=== PATIENT | male | born 1960 | race Caucasian/White ===

== ENCOUNTER 2017-06-27 17:39 | Emergency (ER) | payer OTHER ==
[~2017-06-27] VITALS: Ht 182.9 cm; Wt 82.2 kg
[~2017-06-27 17:39] MED LIST: AMLO5TAB4 PO; LISI10TA2 PO
[2017-06-27] MEDS ORDERED: b/p med (19:05)
[2017-06-27] MEDS ORDERED: LORazepam 1MG TABLET ONE (19:22)
[2017-06-27] MEDS ORDERED: LORazepam 1MG TABLET PO ONE (19:30)
[2017-06-27 19:32] LABS: HEMATOCRIT 44.2 % (39.2-51.8); HEMOGLOBIN 14.8 g/dL (13.7-18.0); WHITE BLOOD COUNT 6.6 x10^3/uL (3.4-10)
[2017-06-27 19:44] LABS: ASPARTATE AMINO TRANSFERASE 15 U/L (15-37); BLOOD UREA NITROGEN 16 mg/dL (7-18)
[2017-06-27 19:46] LABS: ACETAMINOPHEN < 2 mcg/mL (10-30)
[2017-06-27 19:50] LABS: DAU SCREEN DISCLAIMER
[2017-06-27 20:15] VITALS: BP 115/76
== END 2017-06-27 20:35 | disposition left against medical advice (07) ==
LOC: ED 20:29
DX: F41.1 Generalized anxiety disorder (principal); I10 Essential (primary) hypertension; F17.200 Nicotine dependence, unspecified, uncomplicated
CPT/HCPCS: 36415; 80053; 80307; 80329; 84443; 85025; 99284; G0480

== ENCOUNTER 2017-08-28 12:26 | Emergency (ER) | payer OTHER ==
[~2017-08-28] VITALS: Ht 182.9 cm; Wt 82.0 kg
[~2017-08-28 12:26] MED LIST changes: +b/p med
[2017-08-28] MEDS ORDERED: VALS80TA3 PO (13:08)
[2017-08-28] MEDS ORDERED: ASPI-650 PO (13:10)
[2017-08-28] MEDS ORDERED: SODIUM CHLORIDE FLUSH 10ML SYR IVF ONE (13:30)
[2017-08-28 13:31] LABS: WHITE BLOOD COUNT 6.8 x10^3/uL (3.4-10)
[2017-08-28 13:42] LABS: ASPARTATE AMINO TRANSFERASE 11 U/L (15-37); BLOOD UREA NITROGEN 15 mg/dL (7-18)
[2017-08-28 13:48] LABS: IS PT STATUS REG ER OR PRE ER? YES
[2017-08-28 15:51] VITALS: BP 149/89
== END 2017-08-28 16:02 | disposition home or self-care (01) ==
LOC: ED 15:30
DX: H53.123 Transient visual loss, bilateral (principal); I10 Essential (primary) hypertension
CPT/HCPCS: 36415; 70450; 80053; 84484; 85025; 93005; 99285

== ENCOUNTER 2017-08-31 11:24 | Emergency (ER) | payer OTHER ==
[~2017-08-31] VITALS: Ht 182.9 cm; Wt 80.2 kg
[~2017-08-31 11:24] MED LIST changes: +ASPI-650 PO; +VALS80TA3 PO
[2017-08-31] MEDS ORDERED: METOCLOPRAMIDE 5 MG/ML, 2ML ONE (11:57)
[2017-08-31] MEDS ORDERED: KETOROLAC 30 MG/1 ML ONE (11:57)
[2017-08-31] MEDS ORDERED: KETOROLAC 30 MG/1 ML IVPush ONE (12:00)
[2017-08-31] MEDS ORDERED: SODIUM CHLORIDE 0.9% 1,000ML IVBOLUS ONE (12:00)
[2017-08-31] MEDS ORDERED: METOCLOPRAMIDE 5 MG/ML, 2ML IVPush ONE (12:00)
[2017-08-31 12:15] VITALS: BP 131/95
[2017-08-31 12:23] LABS: BLOOD UREA NITROGEN 18 mg/dL (7-18)
== END 2017-08-31 14:34 | disposition home or self-care (01) ==
LOC: ED 12:13
DX: R51 Headache (principal); E03.9 Hypothyroidism, unspecified; I10 Essential (primary) hypertension
CPT/HCPCS: 36415; 80048; 84443; 93005; 96361; 96374; 96375; 99285; J1885; J2765; J7030